=== PATIENT | female | born 1995 | race Caucasian/White ===

== ENCOUNTER 2024-02-10 13:27 | Outpatient (CLI) | payer OTHER, SELFPAY ==
[2024-02-10 19:30] LABS: HIV (1&2) Antibody Rapid NONREACTIVE (NONREACTIVE)
[2024-02-12 07:13] LABS: HCV Ab Non Reactive (Non Reactive)
== END 2024-02-10 23:59 | disposition home or self-care (01) ==
LOC: LAB.DROPOF 02-11 13:27
PROVIDERS: PCP Nurse Practitioner; Visit Provider Nurse Practitioner
DX: N10 Acute pyelonephritis (principal); Z11.59 Encounter for screening for other viral diseases; Z11.4 Encounter for screening for human immunodeficiency virus [HIV]
CPT/HCPCS: 86803; 87086; 87088; 87186; 87389

== ENCOUNTER 2024-06-01 12:25 | Outpatient (CLI) | payer OTHER, SELFPAY ==
[2024-06-01 18:43] LABS: Coronavirus 19, PCR Not Detected (NotDetected); Human Rhinovirus Not Detected (NotDetected); Influenza A, PCR Not Detected (NotDetected); Influenza B, PCR Not Detected (NotDetected); Respiratory Syncytial Virus Not Detected (NotDetected)
== END 2024-06-01 23:59 | disposition home or self-care (01) ==
LOC: LAB.DROPOF 06-02 11:24
PROVIDERS: PCP Nurse Practitioner; Visit Provider Nurse Practitioner
DX: J06.9 Acute upper respiratory infection, unspecified (principal)
CPT/HCPCS: 87631